=== PATIENT | female | born 1985 | race Caucasian/White ===

== ENCOUNTER 2024-02-29 10:29 | Day surgery (SDC) | payer BC ==
[2024-02-27 16:09] LABS: BASOPHILS % (AUTO) 0.5 % (0.0-2.0); EOSINOPHILS # (AUTO) 0.1 K/uL (0.0-0.4); EOSINOPHILS % (AUTO) 1.5 % (0.0-4.0); HEMATOCRIT 37.7 % (36-48); LYMPHOCYTES # (AUTO) 1.7 K/uL (1.0-5.5); LYMPHOCYTES % (AUTO) 25.5 % (20.5-51.5); MEAN CORPUSCULAR HEMOGLOBIN 31 pg (27-31); MEAN CORPUSCULAR HGB CONC 34 % (32-36); MEAN CORPUSCULAR VOLUME 91 fL (79.0-98.0); MONOCYTES # (AUTO) 0.5 K/uL (0.0-1.0); MONOCYTES % (AUTO) 7.7 % (1.7-9.3); NEUTROPHILS # (AUTO) 4.4 K/uL (1.8-7.7); NEUTROPHILS % (AUTO) 64.8 % (40.0-70.0); PLATELET COUNT (AUTO) 242 K/uL (130-430); RED BLOOD CELL COUNT(AUTO) 4.13 MIL/uL (4.2-6.2); RED CELL DISTRIBUTION WIDTH 12.7 % (9.0-15.0); WHITE BLOOD COUNT (AUTO) 6.8 K/uL (4.8-10.8)
[~2024-02-29] VITALS: Ht 157.5 cm; Wt 59.0 kg
[~2024-02-29 10:29] MED LIST: CEFAZOLIN SOD 2 GM in D5W 50 ML IV ONE
[2024-02-29 12:20] VITALS: O2SAT 100
[2024-02-29] MEDS ORDERED: METOCLOPRAMIDE HCL 10 MG/2 ML VIAL ONE (13:40)
[2024-02-29] MEDS ORDERED: SEVOFLURANE 15 MIN GAS INH ONE (13:40)
[2024-02-29] MEDS ORDERED: OXYTOCIN 10 UNIT/ML VIAL ONE (13:40)
[2024-02-29] MEDS ORDERED: ONDANSETRON HCL 4 MG/2 ML VIAL ONE (13:40)
[2024-02-29] MEDS ORDERED: ePHEDrine sulfate 50 MG/ML VIAL ONE (13:40)
[2024-02-29] MEDS ORDERED: PROPOFOL 200MG/ 20ML VIAL (DIPRIVAN) IV ONE (13:40)
[2024-02-29] MEDS ORDERED: LIDOCAINE 1% 10 MG/ML, 20 ML MDV ONE (13:40)
[2024-02-29] MEDS ORDERED: LR 1,000 ML IV.SOLN IV ONE (13:40)
[2024-02-29] MEDS ORDERED: KETOROLAC TROMETHAMINE 30 MG VIAL ONE (13:40)
[2024-02-29] MEDS ORDERED: LR 1,000 ML IV SCH (14:15)
[2024-02-29] MEDS ORDERED: HYDROmorphone 1 MG/ML INJ. CARTRIDGE IVP PRN (14:15)
[2024-02-29] MEDS ORDERED: HYDROmorphone 2 MG/ML VIAL IVP PRN (14:15)
[2024-02-29] MEDS ORDERED: KETOROLAC TROMETHAMINE 30 MG VIAL IVP PRN (14:15)
[2024-02-29] MEDS ORDERED: ONDANSETRON HCL 4 MG/2 ML VIAL IVP PRN ×2 (14:15→14:30)
[2024-02-29] MEDS ORDERED: OXYCODONE/ACETAMINOPHEN 5-325 TABLET PO PRN ×2 (14:30)
[2024-02-29] MEDS ORDERED: HYDROcodone/ACETAMIN 5-325 MG TAB (NORCO/ VICODIN) PO PRN (14:30)
[2024-02-29 18:46] VITALS: BP_SYST 109; PULSE 88; RESP 17
== END 2024-02-29 16:28 | disposition home or self-care (01) ==
LOC: SDS 10:29 → SMU 10:30 → SDS 16:28
PROVIDERS: ATTEND Specialist
DX: O03.4 Incomplete spontaneous abortion without complication (principal); N92.6 Irregular menstruation, unspecified; Z87.891 Personal history of nicotine dependence
CPT/HCPCS: 85025; 85610; 85730; 86886; 86900; 86901; 87081; 36415; 59812; 86920; J0690; J1885; J2765; J2405; J2590; J2704; J7060; J7120; 88305; J2001